=== PATIENT | female | born 1950 | race Caucasian/White ===

== ENCOUNTER 2021-07-09 10:23 | Outpatient (CLI) | payer MEDICARE, SELFPAY ==
[2021-07-09 11:07] LABS: Anion Gap 7 mmol/L (8-16); Blood Urea Nitrogen 15 mg/dL (7-17); Calcium 9.1 mg/dL (8.4-10.2); Carbon Dioxide 26 mmol/L (22-30); Chloride 106 mmol/L (98-107); Estimated Glomerular Filt Rate > 60; Glucose 223 mg/dL (65-110); Potassium 4.2 mmol/L (3.4-5.0); Sodium 139 mmol/L (137-145)
== END 2021-07-09 10:24 | disposition home or self-care (01) ==
LOC: ANHSURGERY 10:27
PROVIDERS: Anesthesiology; PCP Family Medicine; Visit Provider Obstetrics & Gynecology Gynecology
DX: Z01.812 Encounter for preprocedural laboratory examination (principal)
CPT/HCPCS: 36415; 80048

== ENCOUNTER 2021-07-14 01:00 | Day surgery (SDC) | payer MEDICARE, SELFPAY ==
[2021-07-04 14:18] VITALS: BMI 35.9
--- NOTE | 2021-07-14 07:48 | P.HP_ITS ---
History of Present Illness History of Present Illness Consent: Risks, benefits, and alternatives have been discussed and questions answered. Patient agrees to proceed with procedure. Chief complaint: post menopausal bleeding, hematuria Narrative: Gonzalez Cardoso is a 71 year old female who was initially seen is a new patient in April of 2021. Patient reported at the time approximately 1 year of erratically bleeding. Spotting many days per month. On exam no obvious findings are noted. It was recommended to proceed with hysteroscopy D&C. Risks of infection, bleeding, and perforation were reviewed. Possible pathology was discussed. In addition the patient has been worked up for Urology and will be having a procedure performed by Dr. Rushing today. See his dictation for further details. Review of Systems Genitourinary: Genitourinary: Reports urinary incontinence Musculoskeletal: Musculoskeletal: Reports arthralgias [facility] Past Medical History Medical History (Updated 07/14/21 @ 07:56 by Zara Nunez MD) Asthma Diabetes mellitus Elevated cholesterol HTN (hypertension) (normal spontaneous vaginal delivery) X2 Spontaneous X3 D&C Stress bladder incontinence, female With bladder sling repair in 2009 Surgical History Surgical History (Updated 07/14/21 @ 07:54 by Zara Nunez MD) Status post left breast lumpectomy Benign x2 1966 and 1979 Status post tubal ligation Social History Social History Smoking status: Never smoker Alcohol intake: current Drinks per week: 5 Substance use: never Living arrangements: alone Spiritual care concerns: No Meds Home Medications and Allergies Home Medications Medication Instructions Recorded Confirmed Type atorvastatin 10 mg PO QPM 07/04/21 07/04/21 History cholecalciferol (vitamin D3) 50 mcg PO DAILY 07/04/21 07/04/21 History losartan 100 mg PO QPM 07/04/21 07/04/21 History metformin 500 mg PO QPM 07/04/21 07/04/21 History Allergies Allergy/AdvReac Type Severity Reaction Status Date / Time No Known Allergies Allergy Verified 07/04/21 14:13 Exam Const: General: healthy appearing and alert Orientation/consciousness: patient oriented x3 Resp: Effort & Inspection: normal respiratory effort Auscultation: clear to auscultation bilaterally Cardio: Rate: regular rate Rhythm: regular rhythm GI: GI Palp: Yes Soft to palpation, No Tenderness to palpation present (GI) and No Palpable mass present : External Female Exam: normal external appearance Speculum Exam - Vagina: normal appearance of the vagina, normal vaginal discharge, vagina atrophic and other (Cystocele) Speculum Exam - Cervix: normal appearance of the cervix Bimanual exam- vagina & uterus: uterine size normal, consistency normal and other (Sling is palpable but no obvious erosion) Bimanual Exam- Adnexa, other: normal adnexae and No adnexal tenderness Neuro: General: patient oriented x3 Assessment and Plan Assessment and plan (1) Post-menopausal bleeding: Code(s): N95.0 - Postmenopausal bleeding Status: Acute Assessment and Plan: Plan is to proceed with hysteroscopy D&C
--- NOTE | 2021-07-14 07:48 | WPDHPUPDATE1 ---
History and Physical Update Update Date/Time: 07/14/21 07:48 History and Physical has been reviewed, including an updated exam of the patient. There are NO changes in the patient's condition. Risks, benefits, and alternatives have been discussed and questions answered. Patient agrees to proceed with procedure.
--- NOTE | 2021-07-14 08:03 | WPDANESEPPF ---
Anes - Initial Pre Proc Eval Procedure: Operation Date: 07/14/21 11:00 Proposed Procedures p Hysteroscopy, Dilation and Curettage - Zara Nunez MD s Cystoscopy with Bladder Biopsy - Hilario Rushing MD Date/Time: 07/14/21 08:03 Surgeon: Zara Nunez MD Pre Op Diagnosis: post menopausal bleeding, hematuria Patient Data Age: 71 Gender: F Height: 1.7 m Weight: 104 kg Allergies Allergy/AdvReac Type Severity Reaction Status Date / Time No Known Allergies Allergy Verified 07/04/21 14:13 Home Medications Medication Instructions Recorded Confirmed Type atorvastatin 10 mg PO QPM 07/04/21 07/04/21 History cholecalciferol (vitamin D3) 50 mcg PO DAILY 07/04/21 07/04/21 History losartan 100 mg PO QPM 07/04/21 07/04/21 History metformin 500 mg PO QPM 07/04/21 07/04/21 History Patient hx anesthesia problems: none Family hx anesthesia problems: none PMFSH Past Medical History Medical History (Updated 07/14/21 @ 07:56 by Zara Nunez MD) Asthma Diabetes mellitus Elevated cholesterol HTN (hypertension) (normal spontaneous vaginal delivery) X2 Spontaneous X3 D&C Stress bladder incontinence, female With bladder sling repair in 2009 Surgical History Surgical History (Updated 07/14/21 @ 07:54 by Zara Nunez MD) Status post left breast lumpectomy Benign x2 1966 and 1979 Status post tubal ligation Social History Social History Smoking status: Never smoker Alcohol intake: current Drinks per week: 5 Substance use: never Living arrangements: alone Spiritual care concerns: No Anes - Eval Final PreProcedure Day of Procedure 07/14/21 08:03 Patient weight: obese Heart: regular rate and rhythm Lungs: clear to auscultation and normal air movement Airway: Mallampati scale class II Neurological: alert and oriented Last oral intake: >/= 8 hours ASA classification: III Emergent: no Anesthetic plan: proceed Anesthesia type and monitoring: general GIVS and standard monitoring Informed Consent: The patient's anesthetic plan and its attendant risks and benefits were discussed with the patient/family/POA. Questions were solicited and answers provided to the satisfaction of the patient/family/POA.
[2021-07-14] MEDS: LACTATED RINGERS 1,000 ML 30 ML IV CONT (09:30)
[2021-07-14] MEDS: ACETAMINOPHEN 500 MG TABLET 1000 MG PO (09:30)
[2021-07-14 09:41] VITALS: BP 147/69; PULSE 88; TEMP 36.7; O2SAT 100
[2021-07-14 09:41] LABS: Glucose Point of Care 118 mg/dl (65-105)
--- NOTE | 2021-07-14 10:06 | WPDHPUPDATE1 ---
History and Physical Update Update Date/Time: 07/14/21 10:06 History and Physical has been reviewed, including an updated exam of the patient. There are NO changes in the patient's condition. Risks, benefits, and alternatives have been discussed and questions answered. Patient agrees to proceed with procedure.
[2021-07-14] MEDS: ceFAZolin 2 GM/D5W 50 ML 2 GM/50 ML BAG IVPB (10:54)
--- NOTE | 2021-07-14 11:29 | W.PM.PROC2 ---
Procedure Note - Detailed Date of Procedure 07/14/21 Pre-op Diagnosis Post menopausal bleeding, hematuria Post-op Diagnosis same Procedure Performed Cystoscopy, bladder biopsy Surgeon Hialrio Rushing MD Anesthesia general Description of Procedure Patient is prepped and draped in routine sterile fashion while in a dorsal lithotomy position in his undergone hysteroscopy. Cystoscopy reveals a normal bladder neck and urethra. Bladder mucosa is, for the most part, normal there is some very minimal hyperemia in the posterior bladder wall above enlarged ureteroscopy. Bladder mucosa itself is otherwise without obvious neoplasm. She has a single orthotopic ureteral orifice with clear efflux bilaterally. Cold cup biopsies obtained of the urine the posterior bladder wall described above in the base and periphery are cauterized using a Bugbee electrode. Urine had been collected for cytology with placement of the cystoscope. The patient tolerated this aspect of the procedure well only taken recovery room good condition Estimated Blood Loss 0 Drains No Packing No Pathology yes Complications No immediate complications Condition stable Disposition PACU
[2021-07-14 11:34] VITALS: BP 112/57; PULSE 81; RESP 14; O2SAT 95
--- NOTE | 2021-07-14 11:38 | W.PM.PROC2 ---
Procedure Note - Detailed Date of Procedure 07/14/21 Pre-op Diagnosis post menopausal bleeding, hematuria Post-op Diagnosis same Procedure Performed D and C hysteroscopy Surgeon Zara Nunez MD Anesthesia MAC and local Findings cervical os is very stenotic; uterus sounds to 8cm; extensive calcified irregular papillary mass within the uterine cavity Description of Procedure the patient was taken to the operating room and placed under anesthesia in the dorsal lithotomy position. She was prepped and draped in usual sterile fashion. [place] speculum was placed in the vagina and the cervix was grasped on the anterior lip tenaculum. The cervix is injected in each quadrant with lidocaine.The external os is stenotic and able to be entered with the small dilator. The internal os is opened with the os Finders. The uterus is then sounded to 8cm. The cervix is serially dilated with [place]. The diagnostic hysteroscope was placed with the above-stated findings. the hysteroscope was removed and the medium sharp curette used to sharply curette the endometrium until a good uterine cry was noted in all areas. Significant amount of material was obtained consistent with the visual appearance. The case was then turned over to Dr. Rushing for cystoscopy. To this point the sponge, needle, and instrument counts are correct per the OR staff. Estimated Blood Loss 0 Drains No Packing No Pathology yes ( Endometrial curettings) Complications No immediate complications Condition stable Disposition PACU
[2021-07-14] MEDS: LIDOCAINE HCL 2% GEL UROJET 10 ML PKG MUCOUS MEM (11:39)
--- NOTE | 2021-07-14 11:40 | SUR.OPER ---
urine specimen sent to lab for cytology by CHAPIN Guajardo and was received by Sylvia in pathology.
[2021-07-14 11:52] LABS: Glucose Point of Care 119 mg/dl (65-105)
[2021-07-14 12:04] VITALS: BP 120/62; PULSE 78; RESP 14; O2SAT 99
[2021-07-14 12:34] VITALS: BP 132/67; PULSE 84; RESP 14
[2021-07-14 12:45] VITALS: BP 128/65; PULSE 79; RESP 14
== END 2021-07-14 12:55 | disposition home or self-care (01) ==
PROVIDERS: Urology; PCP Family Medicine; Visit Provider Obstetrics & Gynecology Gynecology
PROC: 0U5B8ZZ Destruction of Endometrium, Via Natural or Artificial Opening Endoscopic (ICD-10-PCS; CPT 58563; principal; 2021-07-14 11:00)
PROC: 0TBB8ZX Excision of Bladder, Via Natural or Artificial Opening Endoscopic, Diagnostic (ICD-10-PCS; CPT 52204; 2021-07-14 11:00)
DX: C54.1 Malignant neoplasm of endometrium (principal); N95.0 Postmenopausal bleeding; N30.21 Other chronic cystitis with hematuria; J45.909 Unspecified asthma, uncomplicated; E11.9 Type 2 diabetes mellitus without complications; E78.00 Pure hypercholesterolemia, unspecified; I10 Essential (primary) hypertension; Z79.84 Long term (current) use of oral hypoglycemic drugs; E66.9 Obesity, unspecified; Z68.36 Body mass index [BMI] 36.0-36.9, adult
CPT/HCPCS: 58558; 52204; 36415; 80048; 82948; 88104; 88108; 88305; A9270; J0690; J2704; J3010; J7030; J7120